=== PATIENT | male | born 1980 | race Caucasian/White ===

== ENCOUNTER 2019-09-30 11:50 | Emergency (ER) | payer OTHER, SELFPAY ==
[2019-09-30] VITALS (11 sets, daily range): BP systolic 106–135; BP diastolic 68–92; PULSE 75–118; RESP 12–20; TEMP 35.9–36.8; O2SAT 94–100; BMI 27.1
--- NOTE | 2019-09-30 11:58 | XR_ITS ---
PROCEDURE: XR CHEST PORTABLE CLINICAL HISTORY: ams Altered mental status, altered level of consciousness, confusion, disorientation Unresponsive COMPARISON: No exams were available for comparison FINDINGS: The cardiomediastinal silhouette and pulmonary vascularity are within normal limits. There are slight increased markings in the right lower lobe which could be due to an area of atelectasis or infiltrate. The remaining lungs are clear. No acute bony abnormalities. IMPRESSION: Slight increased markings right lower lobe suggesting patchy infiltrate Dictated by: Raleigh Morris MD 09/30/2019 13:15 Electronically signed by Raleigh Morris MD in [facility] 09/30/2019 13:15
--- NOTE | 2019-09-30 11:58 | CT_ITS ---
PROCEDURE: CT HEAD/BRAIN WO CON CLINICAL INDICATION: ams, found down Altered mental status, altered level of consciousness, confusion, disorientation COMPARISON: HDWO CT HEAD W/O CONTRAST from 06/20/2014 TECHNIQUE: Axial images obtained. All CT scans at the facility use one or more dose reduction, viz: automated exposure control, ma/kV adjustment per patient size (including targeted exams where dose is matched to indication, i.e. head), or iterative reconstruction technique. FINDINGS: No midline shift, mass effect, intracranial hemorrhage, hydrocephalus, or extra-axial fluid collection is evident. There is a prominent cisterna magna as a normal variant. There are old nasal bone fractures and postsurgical changes of the left facial bones. The calvarium has an unremarkable appearance. No mastoid effusion. Moderate mucosal thickening involves the ethmoid sinuses. IMPRESSION: No acute intracranial finding Dictated by: Raleigh Morris MD 09/30/2019 13:13 Electronically signed by Raleigh Morris MD in [facility] 09/30/2019 13:13
--- NOTE | 2019-09-30 12:01 | HMH.EDGENADL ---
ED Disposition Clinical Impression: Amphetamine intoxication delirium, Opiate abuse, episodic Drug overdose Qualifiers: Encounter type: initial encounter Injury intent: accidental or unintentional Qualified Code(s): T50.901A - Poisoning by unspecified drugs, medicaments and biological substances, accidental (unintentional), initial encounter Cocaine intoxication Qualifiers: Complication of substance-induced condition: with delirium Qualified Code(s): F14.921 - Cocaine use, unspecified with intoxication delirium Marijuana intoxication Qualifiers: Complication of substance-induced condition: with delirium Qualified Code(s): F12.921 - Cannabis use, unspecified with intoxication delirium Disposition: Home, Self-Care Condition on Discharge: Fair Instructions: DI for Drug Overdose in Adults Prescriptions: Naloxone HCl [Narcan] 4 mg NS ONCE PRN #1 spray PRN Reason: Opioid Reversal Prescription Printed Referrals: Provider,Referral, MD [Primary Care Provider] - Time of Disposition: 18:26 - Critical Care Critical Care Time: No Attestation: On , the high probability of a clinically significant, sudden or life threatening deterioration of the following system(s) required my full and direct attention, intervention and personal management. The time I documented below is in addition to time spent performing reported procedures but includes the following listed in this critical care notation. Medical Decision Making - Moises Inquiry Pt receiving controlled substance: No Vital Signs: 09/30/19 11:50 09/30/19 12:20 09/30/19 13:00 Temperature 96.6 F L Temperature Source Rectal Pulse Rate [Right] 86 81 79 Respiratory Rate 12 12 19 Blood Pressure [Right Arm] 106/68 L 113/76 118/73 Blood Pressure Mean [Right Arm] 80 88 88 Blood Pressure Source [Right Arm] Blood Pressure Position [Right Arm] 02 Sat by Pulse Oximetry 94 L 99 100 Oxygen Delivery Method Room Air Nasal Cannula Nasal Cannula Oxygen Flow Rate (LPM) 2 09/30/19 13:58 09/30/19 14:43 09/30/19 15:00 Temperature Temperature Source Pulse Rate [Right] 84 93 H 75 Respiratory Rate 18 16 15 Blood Pressure [Right Arm] 115/75 114/74 130/86 Blood Pressure Mean [Right Arm] 88 87 100 Blood Pressure Source [Right Arm] Automatic Cuff Blood Pressure Position [Right Arm] Sitting 02 Sat by Pulse Oximetry 100 99 98 Oxygen Delivery Method Nasal Cannula Nasal Cannula Nasal Cannula Oxygen Flow Rate (LPM) 2 2 2 09/30/19 15:30 09/30/19 16:30 09/30/19 17:48 Temperature Temperature Source Pulse Rate [Right] 83 79 112 H Respiratory Rate 16 18 20 Blood Pressure [Right Arm] 135/92 H 119/84 131/79 Blood Pressure Mean [Right Arm] 106 95 96 Blood Pressure Source [Right Arm] Automatic Cuff Automatic Cuff Blood Pressure Position [Right Arm] Sitting Sitting Supine 02 Sat by Pulse Oximetry 99 98 98 Oxygen Delivery Method Nasal Cannula Oxygen Flow Rate (LPM) 2 09/30/19 18:13 Temperature Temperature Source Pulse Rate [Right] 118 H Respiratory Rate 20 Blood Pressure [Right Arm] 113/71 Blood Pressure Mean [Right Arm] 85 Blood Pressure Source [Right Arm] Automatic Cuff Blood Pressure Position [Right Arm] Sitting 02 Sat by Pulse Oximetry 96 Oxygen Delivery Method Oxygen Flow Rate (LPM) - Lab Data Lab Results 09/30/19 12:06: Urine Color Yellow, Urine Appearance Clear, Urine pH 7.0, Ur Specific [place] 1.015, Urine Protein Negative, Urine Glucose (UA) Negative, Urine Ketones Negative, Urine Blood Negative, Urine Nitrate Negative, Urine Bilirubin Negative, Urine Urobilinogen 1.0, Ur Leukocyte Esterase Negative, Urine RBC Occasional, Urine WBC None, Ur Squamous Epith Cells Occasional, Urine Bacteria None 09/30/19 12:06: WBC 13.2 H, RBC 3.98 L, Hgb 12.5 L, Hct 36.9 L, MCV 92.8, MCH 31.4 H, MCHC 33.8, RDW 13.6, Plt Count 348, MPV 7.8, Neut % (Auto) 79.7, Lymph % (Auto) 16.4, [place] % (Auto) 2.4, Eos % (Auto) 1.2, Baso % (Auto) 0.3, Neut # (Auto) 10.5 H
--- NOTE | 2019-09-30 12:12 | ECG_ITS ---
APPROVED REPORT Exam: Resting ECG HR:82 bpm ECG Measurements Heart Rate 82 AXES [place] 136 P 54 QRSd 98 QRS 69 QT 388 T 60 QTc 453 <Conclusion> Normal sinus rhythm Normal ECG Electronically signed by : Estrada Medina, 09/30/2019 17:09:07
[2019-09-30 12:13] LABS: Microscopic, Urine URINE MICROSCOPIC (MICROSCOPIC)
[2019-09-30 12:15] LABS: Appearance,Urine CLEAR (Clear); Bilirubin,Urine Negative (Negative); Blood, Urine Negative (Negative); Color,Urine YELLOW (Yellow); Glucose,Urine (UA) Negative (Negative); Ketones,Urine Negative (Negative); Leukocyte Esterase,Urine Negative (Negative); Nitrate,Urine Negative (Negative); Protein,Urine Negative (Negative); Specific Gravity, Urine 1.015 (1.005-1.030)
[2019-09-30 12:18] LABS: Basophils % 0.3 % (0.1-2.0); Eosinophils # 0.2 K/mm3 (0.0-0.4); Eosinophils % 1.2 % (0.1-12.0); Hematocrit 36.9 % (42.0-52.0); Hemoglobin 12.5 g/dL (14.1-18.0); Lymphocytes # 2.2 K/mm3 (0.7-4.5); Lymphocytes % 16.4 % (10-50); Mean Corpuscular HGB Conc 33.8 g/dL (31.8-35.4); Mean Corpuscular Hemoglobin 31.4 pg (27.0-31.2); Mean Corpuscular Volume 92.8 fl (80-94); Mean Platelet Volume 7.8 fl (7.4-10.4); Monocytes # 0.3 K/mm3 (0.1-1.0); Monocytes % 2.4 % (1.7-9.3); Neutrophils # 10.5 K/mm3 (1.8-7.8); Neutrophils % 79.7 % (37.0-80.0); Platelet Count 348 K/mm3 (142-424); Red Blood Count 3.98 M/mm3 (4.60-6.20); Red Cell Distribution Width 13.6 % (11.5-17.5); White Blood Count 13.2 K/mm3 (4.8-10.8)
[2019-09-30 12:21] LABS: Chloride 103 mmol/L (98-107); Potassium 3.7 mmoL/L (3.5-5.1); Sodium 142 mmol/L (136-145)
[2019-09-30 12:23] LABS: Blood Urea Nitrogen 15 mg/dl (9-20); Creatinine Clearance Estimated 146 mL/min (50-200); Estimated Glomerular Filt Rate 95 ml/min (>60); GFR (African American) 116 ML/MIN (>60)
[2019-09-30 12:24] LABS: Alanine Aminotransferase 17 U/L (12-78); Albumin Level 4.4 g/dl (3.5-5.0); Albumin/Globulin Ratio 1.7 (1.1-1.8); Alkaline Phosphatase 90 U/L (38-126); Anion Gap 12.7 mEq/L (5-15); Aspartate Amino Transferase 31 U/L (17-59); Bilirubin,Total 0.6 mg/dl (0.2-1.3); Calcium 8.9 mg/dl (8.4-10.2); Carbon Dioxide 30 mmol/L (22.0-30.0); Ethyl Alcohol 97 mg/dl (0-10); Globulin 2.6 g/dL (1.3-3.2); Glucose 103 mg/dl (74-100); Lipase 37 U/L (23-300)
[2019-09-30 12:25] LABS: RBC,Urine Occasional #/hpf (0-3); Squamous Epithelial Cell,Urine Occasional #/hpf (0-5)
[2019-09-30 12:27] LABS: Barbiturates Screen,Urine Negative ng/ml (<200)
--- NOTE | 2019-09-30 12:27 | PC.NURSE ---
Pt continues to be unresponsive, VS stable at this time, MD aware of pt condition
[2019-09-30 12:28] LABS: Amphetamine/Metha Screen,Urine Positive ng/ml (<1000); Benzodiazepines Screen,Urine Positive ng/ml (<200)
[2019-09-30 12:29] LABS: Methadone Screen,Urine Negative ng/ml (<300)
[2019-09-30 12:30] LABS: Cocaine Screen,Urine Positive ng/ml (<300)
[2019-09-30 12:32] LABS: Opiate Screen,Urine Positive ng/ml (<300); Phencyclidine Screen,Urine Negative ng/ml (<25)
[2019-09-30 12:36] LABS: Cannabinoid Screen,Urine Positive ng/ml (<50)
--- NOTE | 2019-09-30 12:37 | PC.NURSE ---
Pt to rad
[2019-09-30 12:44] LABS: Creatine Kinase 177 U/L (55-170)
--- NOTE | 2019-09-30 12:59 | PC.NURSE ---
Pt returned from CT
[2019-09-30 13:00] LABS: Troponin I < 0.01 ng/ml (0.00-0.034)
--- NOTE | 2019-09-30 13:13 | PC.NURSE ---
Update pt SO on condition
--- NOTE | 2019-09-30 14:07 | PC.NURSE ---
Pt continues to be asleep, pt will respond to painful stimuli and will look up at staff when his name is yelled, v/s stable. Will continue to monitor.
--- NOTE | 2019-09-30 15:09 | PC.NURSE ---
Pt awake and speaking to MD at this time
--- NOTE | 2019-09-30 15:48 | PC.NURSE ---
Dad at bedside
[2019-09-30 16:47] LABS: Troponin I < 0.01 ng/ml (0.00-0.034)
--- NOTE | 2019-09-30 18:24 | PC.NURSE ---
Pt father here to take pt home, pt is up and getting dressed, walked to BR without any assistance.
== END 2019-09-30 18:31 | disposition home or self-care (01) ==
PROVIDERS: Emergency Provider Emergency Medicine
DX: F14.921 Cocaine use, unspecified with intoxication delirium (principal); F12.921 Cannabis use, unspecified with intoxication delirium; F10.11 Alcohol abuse, in remission; F15.921 Other stimulant use, unspecified with intoxication delirium; Z88.5 Allergy status to narcotic agent
CPT/HCPCS: 70450; 71045; 80053; 80305; 81001; 82550; 83690; 84484; 85025; 93005; 96365; 96375; 99285; J2310

== ENCOUNTER 2020-09-01 23:13 | Emergency (ER) | payer OTHER, SELFPAY ==
[2020-09-01 23:10] VITALS: BP 104/54; PULSE 131; RESP 16; O2SAT 87; BMI 24.3
--- NOTE | 2020-09-01 23:11 | ECG_ITS ---
APPROVED REPORT Exam: Resting ECG HR:131 bpm ECG Measurements Heart Rate 131 AXES NM 140 P 62 QRSd 86 QRS 74 QT 316 T 60 QTc [address] & T wave abnormality, consider lateral ischemia Abnormal ECG Electronically signed by : Peter Al, 09/02/2020 20:26:29
[2020-09-01 23:30] VITALS: BP 95/52; PULSE 127; O2SAT 90
--- NOTE | 2020-09-01 23:42 | HMH.EDAMS ---
ED Disposition Clinical Impression: Alcoholic intoxication Qualifiers: Complication of substance-induced condition: uncomplicated Qualified Code(s): F10.920 - Alcohol use, unspecified with intoxication, uncomplicated Disposition: Home, Self-Care Condition on Discharge: Good Instructions: DI for Altered Mental Status Additional Instructions: call pcp for ely kim Referrals: Provider,Referral, [Referring] - - Critical Care Critical Care Time: No Attestation: On 09/01/20, the high probability of a clinically significant, sudden or life threatening deterioration of the following system(s) required my full and direct attention, intervention and personal management. The time I documented below is in addition to time spent performing reported procedures but includes the following listed in this critical care notation. Medical Decision Making - Medical Records Medical records reviewed: Yes: I reviewed the patient's medical records. - Moises Inquiry Pt receiving controlled substance: No Vital Signs: 09/01/20 23:10 09/01/20 23:30 09/02/20 00:00 Temperature Source Oral Pulse Rate 127 H 103 H Pulse Rate [Left Radial] 131 H Respiratory Rate 16 Blood Pressure 95/52 L Blood Pressure [Right Arm] 104/54 L Blood Pressure Mean [Right Arm] 70 Blood Pressure Source [Right Arm] Automatic Cuff Blood Pressure Position [Right Arm] Sitting 02 Sat by Pulse Oximetry 87 L 90 L 95 Oxygen Delivery Method Room Air 09/02/20 00:27 09/02/20 01:01 09/02/20 01:30 Temperature Source Pulse Rate 114 H 83 80 Pulse Rate [Left Radial] Respiratory Rate Blood Pressure 94/42 L 94/47 L 101/58 L Blood Pressure [Right Arm] Blood Pressure Mean [Right Arm] Blood Pressure Source [Right Arm] Blood Pressure Position [Right Arm] 02 Sat by Pulse Oximetry 92 L 95 88 L Oxygen Delivery Method - Lab Data Lab results reviewed: Yes: I reviewed the patient's lab results. Lab Results 09/01/20 01:30: Urine Color Yellow, Urine Appearance Clear, Urine pH 6.0, Ur Specific [place] 1.020, Urine Protein Negative, Urine Glucose (UA) Negative, Urine Ketones Negative, Urine Blood Negative, Urine Nitrate Negative, Urine Bilirubin Negative, Urine Urobilinogen 0.2, Ur Leukocyte Esterase Negative, Urine RBC None, Urine WBC 3-5, Ur Squamous Epith Cells None, Urine Bacteria None 09/01/20 01:30: Urine Opiates Screen Negative, Urine Methadone Screen Negative, Ur Barbituates Screen Negative, Ur Phencyclidine Scrn Negative, Ur Amphetamines Screen Negative, U Benzodiazepines Scrn Negative, Urine Cocaine Screen Negative, U Marijuana (THC) Screen Positive H 09/01/20 23:15: WBC 10.6, RBC 4.50 L, Hgb 13.8 L, Hct 41.5 L, MCV 92.0, MCH 30.7, MCHC 33.4, RDW 13.2, Plt Count 412, MPV 7.6, Neut % (Auto) 51.0, Lymph % (Auto) 42.4, [place] % (Auto) 3.9, Eos % (Auto) 1.9, Baso % (Auto) 0.8, Neut # (Auto) 5.4, Lymph # (Auto) 4.5, [place] # (Auto) 0.4, Eos # (Auto) 0.2, Baso # (Auto) 0.1 09/01/20 23:15: Sodium 139, Potassium 3.0 L, Chloride 101, Carbon Dioxide 23, Anion Gap 18.0 H, BUN 15, Creatinine 0.80, Estimated Creat Clear 138, Estimated GFR 109, Est GFR ( Amer) 132, Glucose 126 H, Calcium 8.8, Total Bilirubin 0.6, AST 403 H*, ALT 432 H*, Alkaline Phosphatase 84, Total Protein 7.6, Albumin 4.7, Globulin 2.9, Albumin/Globulin Ratio 1.6 09/01/20 23:15: Plasma/Serum Alcohol 114 H 09/01/20 23:15: Magnesium 1.8, Salicylates < 1.0 L, Acetaminophen < 10 L Result diagrams: 09/01/20 23:15 09/01/20 23:15 Orders (Tests/Meds): ED MEDICATIONS Generic Name Dose Route Start Last Admin Trade Name Freq PRN Reason Stop Dose Admin Sodium Chloride 1,000 mls @ 999 mls/hr 09/01/20 23:45 Sod Chlor 0.9% 1000ml Bag IV 09/02/20 00:45 .Q1H1M TALIA Multivitamins 10 ml/ Thiamine 1,015 mls @ 150 mls/hr 09/01/20 23:45 09/02/20 00:54 HCl 100 mg/ Magnesium Sulfate IV 05/09/21 06:30 150 mls/hr 2 gm/ Lactated Ringer's .[id number] TALIA Administration D
--- NOTE | 2020-09-01 23:44 | XR_ITS ---
PROCEDURE INFORMATION: Exam: XR Chest Exam date and time: 09/01/2020 11:44 PM Age: 39 years old Clinical indication: Patient HX: Tachycardia, AMS, smoker TECHNIQUE: Imaging protocol: XR of the chest. Views: 1 view. COMPARISON: CR XR CHEST PORTABLE 09/30/2019 12:59 PM FINDINGS: Lungs: Unremarkable. No consolidation. Pleural spaces: Unremarkable. No pleural effusion. No pneumothorax. Heart/Mediastinum: Unremarkable. No cardiomegaly. Bones/joints: Unremarkable. IMPRESSION: No acute findings.
[2020-09-01 23:47] LABS: Basophils # 0.1 K/mm3 (0-0.2); Basophils % 0.8 % (0.1-2.0); Eosinophils # 0.2 K/mm3 (0.0-0.4); Eosinophils % 1.9 % (0.1-12.0); Hematocrit 41.5 % (42.0-52.0); Hemoglobin 13.8 g/dL (14.1-18.0); Lymphocytes # 4.5 K/mm3 (0.7-4.5); Lymphocytes % 42.4 % (10-50); Mean Corpuscular HGB Conc 33.4 g/dL (31.8-35.4); Mean Corpuscular Hemoglobin 30.7 pg (27.0-31.2); Mean Platelet Volume 7.6 fl (7.4-10.4); Monocytes # 0.4 K/mm3 (0.1-1.0); Monocytes % 3.9 % (1.7-9.3); Neutrophils # 5.4 K/mm3 (1.8-7.8); Platelet Count 412 K/mm3 (142-424); Red Cell Distribution Width 13.2 % (11.5-17.5); White Blood Count 10.6 K/mm3 (4.8-10.8)
[2020-09-01 23:54] LABS: Chloride 101 mmol/L (98-107)
[2020-09-01 23:55] LABS: Sodium 139 mmol/L (136-145)
[2020-09-01 23:57] LABS: Alanine Aminotransferase 432 U/L (12-78); Aspartate Amino Transferase 403 U/L (17-59); Blood Urea Nitrogen 15 mg/dl (9-20); Creatinine Clearance Estimated 138 mL/min (50-200); Estimated Glomerular Filt Rate 109 ml/min (>60); GFR (African American) 132 ML/MIN (>60)
[2020-09-01 23:58] LABS: Albumin Level 4.7 g/dl (3.5-5.0); Albumin/Globulin Ratio 1.6 (1.1-1.8); Alkaline Phosphatase 84 U/L (38-126); Bilirubin,Total 0.6 mg/dl (0.2-1.3); Calcium 8.8 mg/dl (8.4-10.2); Carbon Dioxide 23 mmol/L (22.0-30.0); Globulin 2.9 g/dL (1.3-3.2); Glucose 126 mg/dl (74-100); Total Protein,Serum 7.6 g/dl (6.3-8.2)
[2020-09-01 23:59] LABS: Ethyl Alcohol 114 mg/dl (0-10)
[2020-09-02] VITALS: PULSE 103; O2SAT 95
[2020-09-02 00:05] LABS: Magnesium 1.8 mg/dl (1.6-2.3)
--- NOTE | 2020-09-02 00:13 | PC.NURSE ---
requested patient to urinate, unable to void. .advised per md he would need to be cath'd if he didn't
[2020-09-02 00:15] LABS: Acetaminophen < 10 ug/ml (10-30); Salicylate < 1.0 mg/dL (2.0-20.0)
[2020-09-02 00:27] VITALS: BP 94/42; PULSE 114; O2SAT 92
--- NOTE | 2020-09-02 00:58 | PC.NURSE ---
pt remains unable to ambulate independently. family at bedside requests us to tie him down . informed family that since patient we can get adequate accurate answers for his orientation status, and he is NOT a danger to himself or others at this time, he is not a candidate for restraints.
[2020-09-02 01:01] VITALS: BP 94/47; PULSE 83; O2SAT 95
--- NOTE | 2020-09-02 01:12 | PC.NURSE ---
urine collected and sent to lab
[2020-09-02 01:30] VITALS: BP 101/58; PULSE 80; O2SAT 88
[2020-09-02 01:39] LABS: Microscopic, Urine URINE MICROSCOPIC (MICROSCOPIC)
[2020-09-02 01:44] LABS: Appearance,Urine CLEAR (Clear); Bilirubin,Urine Negative (Negative); Blood, Urine Negative (Negative); Color,Urine YELLOW (Yellow); Glucose,Urine (UA) Negative (Negative); Ketones,Urine Negative (Negative); Leukocyte Esterase,Urine Negative (Negative); Nitrate,Urine Negative (Negative); Protein,Urine Negative (Negative); Urobilinogen,Urine 0.2 EU/dl (0.2)
[2020-09-02 01:52] LABS: Barbiturates Screen,Urine Negative ng/ml (<200); Benzodiazepines Screen,Urine Negative ng/ml (<200)
[2020-09-02 01:53] LABS: Amphetamine/Metha Screen,Urine Negative ng/ml (<1000)
[2020-09-02 01:54] LABS: Cannabinoid Screen,Urine Positive ng/ml (<50); Cocaine Screen,Urine Negative ng/ml (<300)
[2020-09-02 01:55] LABS: Methadone Screen,Urine Negative ng/ml (<300); Opiate Screen,Urine Negative ng/ml (<300)
[2020-09-02 01:56] LABS: Phencyclidine Screen,Urine Negative ng/ml (<25)
[2020-09-02 02:00] VITALS: BP 108/55; PULSE 97; O2SAT 90
[2020-09-02 02:11] VITALS: BP 103/56; PULSE 97; RESP 18; TEMP 37.2; O2SAT 92
== END 2020-09-02 02:26 | disposition home or self-care (01) ==
PROVIDERS: Emergency Provider Emergency Medicine; PCP Family Medicine
DX: F10.920 Alcohol use, unspecified with intoxication, uncomplicated (principal); F12.10 Cannabis abuse, uncomplicated
CPT/HCPCS: 71045; 80053; 80305; 80329; 81001; 83735; 85025; 93005; 96365; 96367; 99283